=== PATIENT | male | born 1995 | race Two or more races ===

== ENCOUNTER 2019-05-07 13:36 | Emergency (ER) | payer OTHER ==
[~2019-05-07] VITALS: Ht 177.8 cm; Wt 111.1 kg
[2019-05-07 13:48] VITALS: BP 118/64
[2019-05-07] MEDS ORDERED: TETANUS-DIPTH-ACEL PERTUSSIS 0.5ML SYRG IM ONE (15:30)
== END 2019-05-07 16:59 | disposition home or self-care (01) ==
LOC: ER 13:44
DX: S61.411A Laceration without foreign body of right hand, initial encounter (principal); V47.5XXA Car driver injured in collision with fixed or stationary object in traffic accident, initial encounter; Y93.I9 Activity, other involving external motion; Y92.410 Unspecified street and highway as the place of occurrence of the external cause; Y99.8 Other external cause status
CPT/HCPCS: 12002; 73130; 90471; 90715